=== PATIENT | female | born 1925 | race American Indian/Alaskan Native ===

== ENCOUNTER 2017-01-02 04:16 | Emergency (ER) | payer MEDICARE ==
--- NOTE | 2017-01-02 04:39 | Emergency Department Report ---
ED CPR HPI - General Stated Complaint: CARDIAC ARREST Time Seen by Provider: 01/02/17 04:30 - History of Present Illness Initial Comments: Patient is an 89-year-old female who presents status post cardiac arrest. Patient was found down at home in asystole patient has been getting CPR by EMS for the last 30 minutes. Patient has never had a return of spontaneous circulation while en route. Further history is unobtainable due to patient's condition. - Related Data Allergies Allergy/AdvReac Type Severity Reaction Status Date / Time Unable to Assess Allergy Unverified 01/02/17 04:27 ED Review of Systems ROS: Stated complaint: CARDIAC ARREST Other details as noted in HPI Comment: Unobtainable due to pts medical conditions ED Physical Exam - General Limitations: Physical Limitation - Eye Pupils: Present: other (fixed and dilated) - Respiratory Respiratory exam: Present: other (no spontaneous breathing) - Cardiovascular Cardiovascular Exam: Present: other (no spontaneous circulation) - Extremities Exam Extremities exam: Present: other (no pulse ) ED Medical Decision Making - Medical Decision Making Chief Medical diagnosis: Cardiac arrest secondary to old age Differential multiple diagnosis: Pulmonary embolism, cardiac arrest secondary to heart failure ED bedside ultrasound: Shows no cardiac activity, was called at 4:14 AM Due the patient's age and her receiving CPR for the last 30 minutes with no return of spontaneous circulatio no shockable rhythm, time of was called. Informed family of the of the patient. Critical care attestation.: If time is entered above; I have spent that time in minutes in the direct care of this critically ill patient, excluding procedure time. ED Disposition Clinical Impression: Cardiac arrest Disposition: DC-20 Is pt being admited?: No Does the pt Need Aspirin: No Condition: Stable
== END 2017-01-02 08:00 ==
LOC: ED 04:16
DX: I46.9 Cardiac arrest, cause unspecified (principal)
CPT/HCPCS: 92950